=== PATIENT | female | born 1945 | race Caucasian/White ===

== ENCOUNTER 2017-09-20 19:32 | Emergency (ER) | payer MEDICARE, BC ==
[2017-09-20 23:14] VITALS: BP 167/82
--- NOTE | 2017-09-21 08:31 | CT ---
UNENHANCED BRAIN CT, 09/20/17 Multislice acquisition through the brain without IV contrast was performed. Soft tissue and bone windows are reviewed. Comparison is made to a prior exam dated 06/23/12. No masses or mass effect. No intracranial hemorrhage. No evidence of acute or subacute infarct. No osseous abnormalities. IMPRESSION: No acute intracranial abnormalities. [id number] [facility]
--- NOTE | 2017-09-21 10:16 | ER ---
DATE OF SERVICE: 09/20/2017 HISTORY OF PRESENT ILLNESS: A 72-year-old lady here with complaints of falling about 6 o'clock this evening, possibly little earlier. Her thinks it was more like 5:15 this evening, she was out walking her dog. She was in the yard and she states that she must have fallen. She does not remember getting up or going back into the house. She remembers when she got into the house. She sat down in a chair. She noticed that her hat was lying in the ground outside. The patient slept for a while and she woke up about 45 minutes later. She was nauseated after waking up, but she did not vomit. The nausea has also resolved. The patient states that she feels clear-headed now, but she felt kind of groggy initially. She states that there is some tension at the back of her head toward the base of the skull. She has not noticed any bleeding or any obvious swelling. OBJECTIVE: GENERAL APPEARANCE: The patient is awake and alert to person, place , and date. Lula Coma Scale is 15. VITAL SIGNS: Reviewed. Blood pressure is 171 /95, pulse is 93. She has a temp of 100.1 degrees, O2 sats are 98%, respirations 16. HEENT: Eyes, pupils equal, round, and reactive to light. EOMs are intact without strabismus , nystagmus, or ptosis. Head is normocephalic. The skin is intact. I do not see any obvious swelling or discoloration involving the back of the patient's head or neck area. The patient has full range of motion of the head and neck that is just slightly guarded. There is no increase in pain with range of motion activities. Ears, TMs are normal. Nares are patent. Oral mucous membranes are moist. Tonsils not enlarged or injected. Pharynx not inflamed. NEUROLOGIC: Cranial nerves 2 to 12 are intact. LUNGS: Clear. CARDIAC: Heart sounds distinct without murmurs. SKIN: Warm and dry. LAB AND X-RAY: Head CT is obtained which is negative. Lab work includes a CBC and comprehensive metabolic panel. These results are also negative. DIAGNOSIS: Fall with closed head injury, which appears to be a mild concussion TREATMENT PLAN: The patient is to go home and rest for the next day. Activity should be minimal as tolerated. She is to take Tylenol as needed for headaches and followup should be in a couple of days if her symptoms are not totally resolving. She has already made significant progress since the incident happened a couple of hours ago. The patient has no further questions and she will be going home with her . BRENDA/JULIANNA /[id number] MTDD
== END 2017-09-20 21:48 | disposition home or self-care (01) ==
LOC: LB.ED 19:32
DX: S09.90XA Unspecified injury of head, initial encounter (principal); W19.XXXA Unspecified fall, initial encounter
CPT/HCPCS: 36415; 70450; 80053; 85025; 99284-25

== ENCOUNTER → 2019-04-19 | Outpatient (CLI) | payer MEDICARE, BC ==
--- NOTE | 2019-04-22 17:00 | MY ---
DATE OF SERVICE: 04/19/19 CLINICAL DATA: Encounter for screening mammogram for malignant neoplasm of breast BILATERAL MAMMOGRAMS: Comparison is made to a prior exam dated 10/02/12. There are scattered fibroglandular densities in both breasts. No changes from the prior study. No evidence of malignancy. IMPRESSION: No evidence of malignancy. One year follow-up mammography is recommended. BI-RAD B: Mammogram - There are scattered areas of fibroglandular density. ACR 1 - Negative Mammogram. The exam was reviewed with R2 CAD. [id number] KELSEY
== END ==
LOC: LB.MAM 11:02
PROVIDERS: ATTEND Nurse Practitioner Family
DX: Z12.31 Encounter for screening mammogram for malignant neoplasm of breast (principal)
CPT/HCPCS: 77067

== ENCOUNTER 2019-05-13 12:55 | Emergency (ER) | payer MEDICARE, BC ==
[2019-05-13 13:17] VITALS: BP 136/88; PULSE 73
[2019-05-13] MEDS ORDERED: Ketorolac 60 MG/2 ML SDV IM ONE (13:23)
[2019-05-13] MEDS ORDERED: predniSONE 10 MG Tab ONE ×2 (13:30)
[2019-05-13] MEDS ORDERED: Cyclobenzaprine 10 MG Tab ONE (13:30)
--- NOTE | 2019-05-13 13:51 | EDM.PDOC ---
ED HPI GENERAL MEDICAL PROBLEM - General Chief Complaint: Back Pain or Injury Stated Complaint: back pain Time Seen by Provider: 05/13/19 13:20 Source of Information: Reports: Patient History Limitations: Reports: No Limitations - History of Present Illness INITIAL COMMENTS - FREE TEXT/NARRATIVE: This patient presents to the ED for evaluation of back pain. She states she feel on April 27 landing on her bottom. she did not seek medical care at that time and seemed to be fine. She developed back pain about a week after she fell and was seen in the clinic on 05/11 where she had plain films done and was given a narcotic and a muscle relaxant. She states the medications have not helped and she is unable to straighten herself up or walk. She denies numbness or tingling in her legs or feet. She has had no incontinence of bowel or bladder. She denies any other symptoms or concerns. She has been eating and drinking. Onset: Gradual Onset Date: 04/27/19 Duration: Getting Worse Location: Reports: Back Quality: Reports: Ache, Throbbing Severity: Severe Improves with: Reports: None Worsens with: Reports: Movement Context: Reports: Trauma Associated Symptoms: Reports: No Other Symptoms Treatments PHYSICIST [employer]: Reports: Other (see below) (states narcotic pain medication prescribed on 05/11 is not helping.) Other Treatments PHYSICIST [employer] [facility]: Castell Left Lower Back Pain Score (Numeric/FACES): 9 - Related Data Allergies Allergy/AdvReac Type Severity Reaction Status Date / Time codeine Allergy Cannot Verified 09/20/17 20:09 Remember Home Meds: Home Meds Aspirin [Halfprin] 81 mg PO DAILY 11/05/14 [History] Cholecalciferol (Vitamin D3) [Vitamin D] 1,000 unit PO DAILY 11/05/14 [History] Levothyroxine 75 mcg PO ACBREAKFAST 11/05/14 [History] Lisinopril 40 mg PO DAILY 11/05/14 [History] Naproxen [Naprosyn] 500 mg PO BID 11/05/14 [History] amLODIPine Besylate [Amlodipine Besylate] 5 mg PO DAILY 11/05/14 [History] Past Medical History Other HEENT History: ocular inflammation Cardiovascular History: Reports: Hypertension Gastrointestinal History: Reports: Chronic Diarrhea [employer] 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: Reports: Musculoskeletal History: Reports: Back Pain, Chronic Other Neuro History: skull fracture Endocrine/Metabolic History: Reports: None - Infectious Disease History Infectious Disease History: Reports: Chicken Pox - Past Surgical History GI Surgical History: Reports: Appendectomy, Cholecystectomy, Colonoscopy Other Neurological Surgeries/Procedures: skull fracture Musculoskeletal Surgical History: Reports: Other (See Below) Other Musculoskeletal Surgeries/Procedures:: Back surgery years ago Social & Family History - Caffeine Use Caffeine Use: Reports: Coffee ED ROS GENERAL - Review of Systems Review Of Systems: See Below Constitutional: Reports: No Symptoms HEENT: Reports: No Symptoms Respiratory: Reports: No Symptoms Cardiovascular: Reports: No Symptoms GI/Abdominal: Reports: No Symptoms : Reports: No Symptoms Musculoskeletal: Reports: Back Pain, Muscle Pain, Muscle Stiffness Skin: Reports: No Symptoms Neurological: Reports: No Symptoms ED EXAM,LOWER BACK PAIN/INJURY - Physical Exam Exam: See Below Exam Limited By: No Limitations General Appearance: Alert, WD/WN, No Apparent Distress, Severe Distress, Other ( patient laying over edge of ED cart; states she cannot stand.) Ears: Normal External Exam, Hearing Grossly Normal Nose: Normal Inspection Throat/Mouth: Normal Inspection Head: Atraumatic, Normocephalic Neck: Normal Inspection, Full Range of Motion Respiratory/Chest: No Respiratory Distress, Lungs Clear, Normal Breath Sounds, Chest Non-Tender Extremities: Normal Inspection Neurological: Alert, Normal Mood/Affect, No Motor/Sensory Deficits, Oriented x 3 , Abnormal Gait (related to pain), Difficulty Walking. No: Saddle Anesthesia Psychiatric: Normal Affect Skin Exam: Warm, Dry, Intact Course - Vital Signs Last Recorded V/S: Last Vital Signs Temp 36.7 C 05/13/19 13:07 Pulse 73 05/13/19 13:07 Resp BP 136/88 05/13/19 13:07 Pulse Ox 98 05/13/19 13:07 - Orders/Labs/Meds Orders: Active Orders 24 hr Category Date Time Status PT Evaluation and Treatment [CONS] Routine Cons 05/14/19 09:00 Ordered Lumbar Spine wo Cont [CT] Stat Exams 05/13/19 13:23 Taken Ketorolac [Toradol] Med 05/13/19 13:23 Once 60 mg IM ONETIME ONE Medication Orders Ketorolac Tromethamine (Toradol) 60 mg IM ONETIME ONE Stop: 05/13/19 13:24 Meds: Medications Generic Name Dose Route Start Last Admin Trade Name Freq PRN Reason Stop Dose Admin Ketorolac Tromethamine 60 mg 05/13/19 13:23 Toradol IM 05/13/19 13:24 ONETIME ONE - Re-Assessments/Exams Free Text/Narrative Re-Assessment/Exam: 05/13/19 14:47 This patient presents for evaluation of back pain and radicular symptoms. They have no history of back pain in the past. The pain has improved some with interventions in the ED. The patient did sustain trauma and had plain films done on 05/11 which were negative for acute findings. A CT done today reveals spinal stenosis of L5-S1. There is no indication for consultation with neurosurgery or orthopedic spinal surgeon. The patient has not had a fever, saddle/perineal anesthesia, bilateral foot numbness, or bowel or bladder dysfunction. There is no clinical evidence of cauda equina syndrome, discitis, spinal/epidural space hematoma or epidural abscess. The neurological exam is normal, with the exception of the dermatomal symptoms noted herein. The patient was advised that radiculopathy often takes significant time to resolve, and that follow up with primary care, neurology and/or neurosurgery will be indicated if symptoms do not improve. She was also referred to physical therapy on 05/14 for assessment and establishment of a treatment plan. The patient will be discharged with steroids to use as directed. No heavy lifting, bending or twisting. Return if increasing pain, muscular weakness, or bowel or bladder dysfunction. She should also continue supportive care including NSAIDs and ice/ heat. Departure - Departure Time of Disposition: 14:40 Disposition: Home, Self-Care 01 Condition: Good Clinical Impression: Spinal stenosis - Discharge Information *PRESCRIPTION DRUG MONITORING PROGRAM REVIEWED*: No Instructions: Spinal Stenosis Referrals: PCP,None [Primary Care Provider] - Forms: ED Department Discharge - My Orders Last 24 Hours: My Active Orders 05/13/19 13:23 Lumbar Spine wo Cont [CT] Stat Ketorolac [Toradol] 60 mg IM ONETIME ONE 05/14/19 09:00 PT Evaluation and Treatment [CONS] Routine - Assessment/Plan Last 24 Hours: My Active Orders 05/13/19 13:23 Lumbar Spine wo Cont [CT] Stat Ketorolac [Toradol] 60 mg IM ONETIME ONE 05/14/19 09:00 PT Evaluation and Treatment [CONS] Routine
--- NOTE | 2019-05-14 09:23 | CT ---
Date of Service: 05/13/19 Clinical Data: trauma LUMBAR SPINE CT: Multislice axial acquisition was performed. No priors. The vertebral bodes are of average height and in good alignment. No acute fracture or dislocation. No lytic or blastic bone lesions. There is degenerative disk disease throughout the lumbar spine. There is annular bulging of the L3-4 disk. It does produce ventral effacement of the dural sac. There is facet joint and ligamentum flavum hypertrophy at this level. There is mild central spinal stenosis and mild neural foramen stenosis bilaterally. There is annular bulging of the L4-5 disk. It does produce ventral effacement of the dural sac. There is facet joint and ligamentum flavum hypertrophy at this level. There is mild central spinal stenosis and mild neural foramen stenosis bilaterally. There is annular bulging of the L5-S1 disk that is eccentric to the left. There is facet joint and ligamentum flavum hypertrophy at this level. There is mild neural foramen stenosis on the right and moderate neural foramen stenosis on the left. There is some swelling of the left S1 nerve root. No other disk abnormalities. There are small nonobstructing renal calculi on the right. [id number]
== END 2019-05-13 14:53 | disposition home or self-care (01) ==
LOC: LB.ED 12:55
DX: M48.061 Spinal stenosis, lumbar region without neurogenic claudication (principal); Z79.82 Long term (current) use of aspirin; I10 Essential (primary) hypertension; Z79.899 Other long term (current) drug therapy; Z88.5 Allergy status to narcotic agent
CPT/HCPCS: 72131; 96372; 99283; 99284-25; A9270-GY; J1885